=== PATIENT | male | born 1975 | race Caucasian/White ===

== ENCOUNTER 2025-04-04 13:22 | Emergency (ER) | payer OTHER ==
[~2025-04-04] VITALS: Ht 172.7 cm; Wt 85.0 kg
[~2025-04-04 13:22] MED LIST: LISI-186 MT; METF-1150 MT; PIOG45TA62 MT; SIMV-43 MT
[2025-04-04 13:30] VITALS: O2SAT 98
[2025-04-04] MEDS ORDERED: MAGN400T26 MT (16:12)
[2025-04-04] MEDS: METOCLOPRAMIDE HCL 10MG TABLET PO ONE (16:52)
[2025-04-04 17:03] VITALS: BP 133/81; PULSE 70; RESP 16; TEMP 36.7; O2SAT 99
== END 2025-04-04 17:05 | disposition home or self-care (01) ==
LOC: ER 13:22
DX: R51.9 Headache, unspecified (principal); E11.9 Type 2 diabetes mellitus without complications; Z79.899 Other long term (current) drug therapy; Z79.84 Long term (current) use of oral hypoglycemic drugs; Z98.890 Other specified postprocedural states
CPT/HCPCS: 99284; 70450; J8597